=== PATIENT | male | born 1980 | race Caucasian/White ===

== ENCOUNTER 2018-09-24 12:13 | Emergency (ER) | payer BC, OTHER ==
[~2018-09-24] VITALS: Ht 177.8 cm; Wt 93.9 kg
[2018-09-24 12:28] VITALS: BP 130/115
--- NOTE | 2018-09-24 12:40 | NUR ---
C/O LOWER BACK PAIN, HEADACHE, AND MOUTH INFECTION X 2WEEKS. TX MOUTH INFECTION WITH ABX AMOXICILLIN X3 DAYS, PT REPORTS NO RELIEF. PT REPORTS CONSTANT SHARP LOWER BACK PAIN THAT RADIATES DOWN LEGS. PAIN 7/10. DENIES DYSURIA. [id number]. VSS. BED IS DOWN, LOCKED, BED RAIL X 1, ERMD TO SEE PT. MEDHX:HEP C RX:DENIES
--- NOTE | 2018-09-24 12:40 | NUR ---
DR VERA AT BEDSIDE
[2018-09-24] MEDS ORDERED: cefTRIAXone 1,000 MG in LIDOCAINE MPF 1% - 5 mL VIAL 2.1 ML IM ONE (12:45)
--- NOTE | 2018-09-24 12:51 | NUR ---
PT AMB TO RESTROOM FOR URINE SAMPLE
--- NOTE | 2018-09-24 13:39 | NUR ---
DR VERA RE-EVALUATING PT
--- NOTE | 2018-09-24 14:04 | NUR ---
PT REFUSING LAB DRAW, VSS AT THIS TIME, PT STATES HE WANTS TO GO HOME NOW
[2018-09-24 14:10] VITALS: BP 117/71
--- NOTE | 2018-09-24 14:10 | NUR ---
Patient does not wish to proceed with medical care recommended by DR VERA. Patient given information related to possible complications, up to and including , which could occur as a result of leaving hospital at this time. Patient verbalizes understanding of risks involved leaving against medical advice. Patient has signed AMA form.
[2018-09-24 14:14] LABS: BARBITURATE, URINE NEG. ng/ml (NEG <=200); BENZODIAZEPINE, URINE NEG. ng/mL (NEG <=200); CANNABINOID, URINE POS. ng/mL (NEG <=50); COCAINE, URINE NEG. ng/mL (NEG <=300); OPIATE, URINE NEG. ng/mL (NEG <=2000); PHENCYCLIDINE SCREEN,URINE NEG. ng/mL (NEG <=25)
== END 2018-09-24 14:10 | disposition left against medical advice (07) ==
LOC: MED 12:13
DX: M54.5 Low back pain (principal); F17.200 Nicotine dependence, unspecified, uncomplicated
CPT/HCPCS: 80305; 81002; 96372; 99283; J0696; J2001